=== PATIENT | male | born 1995 | race Caucasian/White ===

== ENCOUNTER 2023-09-16 20:55 | Emergency (ER) | payer OTHER ==
[2023-09-16] MEDS ORDERED: IBUPROFEN 600 MG TABLET (FP) PO ONE (21:08)
[2023-09-16] MEDS: IBUPROFEN 600 MG TABLET (FP) PO ONE (21:13)
[2023-09-16 21:21] VITALS: BP 115/81; PULSE 92; RESP 16; TEMP 98; BMI 25.0
== END 2023-09-16 22:07 | disposition home or self-care (01) ==
LOC: FER 20:55
DX: S82.831A Other fracture of upper and lower end of right fibula, initial encounter for closed fracture (principal); X50.1XXA Overexertion from prolonged static or awkward postures, initial encounter; Y93.67 Activity, basketball
CPT/HCPCS: 73610-TC-RT-FY; 99283-25